=== PATIENT | female | born 1940 | race Caucasian/White ===

== ENCOUNTER 2017-02-12 19:49 | Inpatient (IN) | payer OTHER, MEDICARE ==
[~2017-02-12] VITALS: Ht 165.1 cm; Wt 79.4 kg
[~2017-02-12 19:49] MED LIST: APAP500 MG PO; ATORVASTATIN CA40 M1 PO; COUMADIN5 MG PO; EDARBYCLOR1 TA1 PO; HYDRALAZINE HYD50 MG PO; IMDUR30 MG PO; K-TAB10 MEQ PO; LASIX20 MG PO; LASIX40 MG PO; METFORMIN HCL500 MG PO; METHYLDOPA250 MG PO; PANTOPRAZOLE SO40 M1 PO; TENORMIN50 MG PO; VESICARE5 M1 PO; [UNRECOGNIZED DRUG - OTHER] PO
[2017-02-12 20:37] LABS: BASOPHIL % 0.7 % (0-2); PLATELET COUNT 238 x10^3mcL (130-400)
[2017-02-12 20:38] LABS: RED CELL DISTRIBUTION WIDTH 14.7 % (11.5-14.5)
[2017-02-12 20:47] LABS: CALCIUM 8.5 mg/dL (8.5-10.1); CARBON DIOXIDE 27.5 mmol/L (21-32); CHLORIDE SERUM 104 mmol/L (98-107); CREATININE SERUM 1.1 mg/dL (0.6-1.0); GLUCOSE SERUM 156 mg/dL (74-106); POTASSIUM SERUM 3.2 mmol/L (3.5-5.1); SODIUM SERUM 141 mmol/L (136-145)
[2017-02-12 20:51] LABS: ALBUMIN 3.6 g/dL (3.4-5.0); ALKALINE PHOSPHATASE 45 U/L (46-116); ALT/SGPT 20 U/L (14-59); AST/SGOT 14 U/L (15-37); BILIRUBIN TOTAL 0.6 mg/dL (0.20-1.00); TOTAL PROTEIN, SERUM 7.3 g/dL (6.4-8.2)
[2017-02-12 20:55] LABS: CHOLESTEROL 107 mg/dL (<200)
[2017-02-12] MEDS ORDERED: GOOD SENSE OMEP20 MG PO (21:33)
[2017-02-12] MEDS ORDERED: ALLOPURINOL100 MG PO ×2 (21:34→21:37)
[2017-02-12] MEDS ORDERED: LISINOPRIL2.5 MG PO (21:34)
[2017-02-12] MEDS ORDERED: CARVEDILOL3.125 M1 PO (21:34)
[2017-02-12] MEDS ORDERED: GLUCOPHAGE XR500 MG PO (21:34)
[2017-02-12] MEDS ORDERED: ZESTRIL20 MG PO (21:36)
[2017-02-12] MEDS ORDERED: TORSEMIDE20 MG PO (21:36)
[2017-02-12] MEDS ORDERED: [UNRECOGNIZED DRUG - OTHER] PO (21:36)
[2017-02-12] MEDS ORDERED: VITAMIN D32000 I2 PO (21:37)
[2017-02-12] MEDS ORDERED: METFORMIN HCL1000 MG PO (21:37)
[2017-02-12] MEDS ORDERED: OMEPRAZOLE40 M1 PO (21:37)
[2017-02-12] MEDS ORDERED: ATORVASTATIN CA40 M1 PO (21:38)
[2017-02-12] MEDS ORDERED: CARVEDILOL25 M1 PO (21:38)
[2017-02-12 23:07] LABS: microscopic required? NO
[2017-02-12 23:17] LABS: urine erythrocyte NEGATIVE (NEGATIVE)
[2017-02-12 23:18] LABS: CHOLESTEROL/HDL RATIO 2.6
[2017-02-12 23:23] LABS: T3 TOTAL 1.05 ng/mL
[2017-02-12 23:24] LABS: FREE T4 1.17 ng/dL (0.76-1.46); FREE THYROXINE INDEX 3.6 ug/dL (1.4-4.5); T4(THYROXINE) 10.4 ug/dL (4.7-13.3)
[2017-02-12 23:50] VITALS: BP 154/73
[2017-02-12 23:55] VITALS: Ht 165.1 cm; Wt 79.4 kg
[2017-02-13] VITALS (7 sets, daily range): BP systolic 141–170; BP diastolic 77–88
[2017-02-13 06:16] LABS: BASOPHIL % 0.2 % (0-2); PLATELET COUNT 205 x10^3mcL (130-400)
[2017-02-13 06:45] LABS: RED CELL DISTRIBUTION WIDTH 15.3 % (11.5-14.5)
[2017-02-13 06:54] LABS: CALCIUM 7.8 mg/dL (8.5-10.1); CHLORIDE SERUM 106 mmol/L (98-107); GLUCOSE SERUM 114 mg/dL (74-106); POTASSIUM SERUM 3.6 mmol/L (3.5-5.1); SODIUM SERUM 143 mmol/L (136-145)
[2017-02-13 07:23] LABS: CARBON DIOXIDE 27.2 mmol/L (21-32); CREATININE SERUM 0.7 mg/dL (0.6-1.0); PHOSPHOROUS 2.3 mg/dL (2.5-4.9)
[2017-02-13 07:27] LABS: MAGNESIUM 0.5 mg/dL (1.8-2.4)
[2017-02-14 05:55] VITALS: BP 129/78
[2017-02-14 06:34] LABS: BASOPHIL % 0.4 % (0-2); PLATELET COUNT 198 x10^3mcL (130-400)
[2017-02-14 06:51] LABS: RED CELL DISTRIBUTION WIDTH 15.4 % (11.5-14.5)
[2017-02-14 08:09] LABS: CALCIUM 8.2 mg/dL (8.5-10.1); CARBON DIOXIDE 27.9 mmol/L (21-32); CHLORIDE SERUM 107 mmol/L (98-107); CREATININE SERUM 0.9 mg/dL (0.6-1.0); GLUCOSE SERUM 109 mg/dL (74-106); MAGNESIUM 2.6 mg/dL (1.8-2.4); PHOSPHOROUS 3.5 mg/dL (2.5-4.9); POTASSIUM SERUM 3.4 mmol/L (3.5-5.1); SODIUM SERUM 142 mmol/L (136-145)
[2017-02-14 10:02] VITALS: BP 135/77
[2017-02-14 12:52] VITALS: BP 136/78
[2017-02-14 14:10] VITALS: BP 136/78
[2017-02-14 17:20] VITALS: BP 143/91
[2017-02-14 20:18] VITALS: BP 143/79
[2017-02-15 05:57] VITALS: BP 162/87
[2017-02-15 08:14] LABS: BASOPHIL % 0.3 % (0-2); PLATELET COUNT 223 x10^3mcL (130-400)
[2017-02-15 08:52] LABS: CALCIUM 8.7 mg/dL (8.5-10.1); CARBON DIOXIDE 28.2 mmol/L (21-32); CHLORIDE SERUM 103 mmol/L (98-107); CREATININE SERUM 0.7 mg/dL (0.6-1.0); GLUCOSE SERUM 106 mg/dL (74-106); MAGNESIUM 1.8 mg/dL (1.8-2.4); PHOSPHOROUS 3.3 mg/dL (2.5-4.9); POTASSIUM SERUM 3.1 mmol/L (3.5-5.1); SODIUM SERUM 145 mmol/L (136-145)
[2017-02-15 12:00] VITALS: BP 163/94
[2017-02-15] MEDS ORDERED: DUL5 PO (12:51)
[2017-02-15 14:41] VITALS: BP 174/102
[2017-02-15] MEDS ORDERED: ANTI-DIARRHEA2 MG PO (16:16)
[2017-02-15 17:01] VITALS: BP 159/87
[2017-02-15 17:25] VITALS: BP 159/87
== END 2017-02-15 19:08 | disposition home health service (06) | DRG 640 ==
LOC: ED 19:49 → DU 22:22
PROVIDERS: Emergency Medicine; Family Medicine; Internal Medicine; ADMIT Family Medicine
PROC: 0DBN8ZZ Excision of Sigmoid Colon, Via Natural or Artificial Opening Endoscopic (ICD-10-PCS; principal; 2017-02-15 13:30)
PROC: 0DBP8ZZ Excision of Rectum, Via Natural or Artificial Opening Endoscopic (ICD-10-PCS; 2017-02-15 13:30)
DX: E86.0 Dehydration (principal); G93.41 Metabolic encephalopathy; N17.0 Acute kidney failure with tubular necrosis; D68.69 Other thrombophilia; I42.2 Other hypertrophic cardiomyopathy; K64.4 Residual hemorrhoidal skin tags; K57.30 Diverticulosis of large intestine without perforation or abscess without bleeding; D12.5 Benign neoplasm of sigmoid colon; D12.8 Benign neoplasm of rectum; E83.42 Hypomagnesemia; E87.6 Hypokalemia; I10 Essential (primary) hypertension; E11.9 Type 2 diabetes mellitus without complications; K21.9 Gastro-esophageal reflux disease without esophagitis; E78.00 Pure hypercholesterolemia, unspecified; Z68.31 Body mass index [BMI] 31.0-31.9, adult; Z79.84 Long term (current) use of oral hypoglycemic drugs
CPT/HCPCS: 36600; 45378; 82962; 83880; 84439; 87046; 87046-59; 97110-GP; 97530-GP; G0480; J0360; J1200; J1610; J2250; J2310; J2543; J3010; J3475; J3490; J7030; J7040; Q0092; Q9966; Q9967

== ENCOUNTER → 2017-04-07 | Day surgery (SDC) | payer OTHER, MEDICARE ==
[~2017-04-07] VITALS: Ht 165.1 cm; Wt 79.8 kg
[~2017-04-07] MED LIST changes: +ALLOPURINOL100 MG PO; +ANTI-DIARRHEA2 MG PO; +CARVEDILOL25 M1 PO; +CARVEDILOL3.125 M1 PO; +DUL5 PO; +GLUCOPHAGE XR500 MG PO; +GOOD SENSE OMEP20 MG PO; +LISINOPRIL2.5 MG PO; +METFORMIN HCL1000 MG PO; +OMEPRAZOLE40 M1 PO; +TORSEMIDE20 MG PO; +VITAMIN D32000 I2 PO; +ZESTRIL20 MG PO; +[UNRECOGNIZED DRUG - OTHER] PO
[2017-04-07 10:02] VITALS: BP 161/94
--- NOTE | 2017-04-07 10:50 | NUR ---
1000 PATIENT ARRIVES TO UNIT AMBULATORY WITH WALKER FOR ASSIST AND ALERT AND ORIENTED X4. PATIENT ACCOMPANIED BY SISTER. PATIENT PROVIDED TEACHING REGARDING PLAN OF CARE AND VERBALIZED UNDERSTANDING. MEDICAL HISTORY VERIFIED. ALLERGIES ADDRESSED. VSS. PATIENT MADE COMFORTABLE. PILAR RN NOTIFIED OF PATIENT'S ARRIVAL. ALL NEEDS MET. WILL CONTINUE TO MONITOR.
--- NOTE | 2017-04-07 10:52 | NUR ---
1020 PATIENT TAKEN TO RADIOLOGY DEPT VIA WHEELCHAIR FOR CT SCAN ORDERED. 1035 PATIENT RECEIVED BACK TO UNIT VIA WHEELCHAIR AND ACCOMPANIED BY PILAR BARRETO AND MIGUEL. PATIENT ALERT AND AWAKE AND ABLE TO MAKE ALL NEEDS KNOWN. PATIENT MADE COMFORTABLE. SISTER AT BEDSIDE. ALL NEEDS MET. WILL CONTINUE TO MONITOR.
--- NOTE | 2017-04-07 11:08 | NUR ---
1104 PATIENT TRANSPORTED VIA GURNEY TO RADIOLOGY DEPT FOR PROCEDURE. PATIENT ACCOMPANIED BY PILAR BARRETO AND PATIENT'S SISTER. PATIENT ALERT AND AWAKE AND ABLE TO MAKE NEEDS KNOWN. NO SOB NOTED. DENIES ANY DISTRESS. WILL CONTINUE TO MONITOR.
[2017-04-07 11:55] VITALS: BP 164/94
--- NOTE | 2017-04-07 12:03 | NUR ---
2186 PATIENT RECEIVED BACK TO UNIT VIA GURNEY AND ACCOMPANIED BY PILAR RN. BEDSIDE ENDORSEMENT RECEIVED. PATIENT ALERT AND AWAKE AND ABLE TO MAKE NEEDS KNOWN. NO SOB NOTED. DENIES ANY PAIN OR DISTRESS. PATIENT WITH BANDAID DRESSINGS TO LEFT NECK AREA. DRESSINGS C/D/I. PATIENT MADE COMFORTABLE. ALL NEEDS MET. WILL CONTINUE TO MONITOR.
[2017-04-07 12:40] VITALS: BP 175/98
[2017-04-07 13:05] VITALS: BP 170/34
--- NOTE | 2017-04-07 13:18 | NUR ---
1305 PATIENT ALERT AND AWAKE AND ABLE TO MAKE ALL NEEDS KNOWN. NO SOB NOTED. RESPIRATIONS EVEN AND UNLABORED. PATIENT WITH SISTER AT BEDSIDE. PATIENT AND SISTER PROVIDED DISCHARGE TEACHING REGARDING PLAN OF CARE, DRESSING CARE, AND FOLLOW UP APPOINTMENT. PATIENT AND SISTER VERBALIZED UNDERSTANDING. PATIENT PROVIDED WRITTEN EXITCARE INSTRUCTION AT THIS TIME. PATIENT TRANSPORTED TO PRIVATE VEHICLE AT THIS TIME VIA WHEELCHAIR FOR DISCHARGE HOME ACCOMPANIED BY RN AND SISTER. ALL NEEDS MET.
== END | disposition home or self-care (01) ==
LOC: DS 09:44 → US 11:00 → DS 11:00
PROC: 0WB63ZX Excision of Neck, Percutaneous Approach, Diagnostic (ICD-10-PCS; principal; 2017-04-07)
DX: E04.1 Nontoxic single thyroid nodule (principal); E11.9 Type 2 diabetes mellitus without complications; I10 Essential (primary) hypertension; M10.9 Gout, unspecified; M19.90 Unspecified osteoarthritis, unspecified site; Z86.73 Personal history of transient ischemic attack (TIA), and cerebral infarction without residual deficits; B18.2 Chronic viral hepatitis C; Z68.29 Body mass index [BMI] 29.0-29.9, adult
CPT/HCPCS: J2001

== ENCOUNTER → 2017-05-03 | Outpatient (CLI) | payer OTHER, MEDICARE | END | disposition home or self-care (01) | LOC: US 09:00 | PROC: BW40ZZZ Ultrasonography of Abdomen (ICD-10-PCS; principal; 2017-05-03) | DX: K80.80 Other cholelithiasis without obstruction (principal); R10.9 Unspecified abdominal pain ==

== ENCOUNTER 2017-06-01 06:44 | Day surgery (SDC) | payer OTHER, MEDICARE ==
[~2017-06-01] VITALS: Ht 165.1 cm; Wt 79.8 kg
[2017-06-01 07:34] VITALS: BP 178/98
[2017-06-01 10:47] VITALS: BP 154/91
== END 2017-06-01 12:15 | disposition home or self-care (01) ==
LOC: GI 06:44 → OR 07:30 → GI 07:30
PROVIDERS: Internal Medicine
PROC: 0DB68ZX Excision of Stomach, Via Natural or Artificial Opening Endoscopic, Diagnostic (ICD-10-PCS; principal; 2017-06-01 07:30)
DX: K29.50 Unspecified chronic gastritis without bleeding (principal); K31.7 Polyp of stomach and duodenum; K20.8 Other esophagitis; E11.9 Type 2 diabetes mellitus without complications; K21.9 Gastro-esophageal reflux disease without esophagitis; E78.5 Hyperlipidemia, unspecified; I10 Essential (primary) hypertension; M10.9 Gout, unspecified; Z68.32 Body mass index [BMI] 32.0-32.9, adult
CPT/HCPCS: 43235; J1200; J1610; J2250; J2310; J3010; J3490

== ENCOUNTER 2017-08-09 09:42 | Inpatient (IN) | payer OTHER, MEDICARE ==
[~2017-08-09] VITALS: Ht 165.1 cm; Wt 82.1 kg
--- NOTE | 2017-08-09 10:00 | NUR ---
PT BIB [facility] WITH C/O GENERALIZED WEAKNESS. PT AND EMS REPORT FALL YESTERDAY WITH RUSTY KNEE PAIN, R HIP PAIN, AND LOWER BACK PAIN. FAILIY REPORTS PT SLIFE OUT OF BED AND FAMILY WAS UNABLE PT ARMATURE WINDER PT AND CALLED 911. PT IS AAOX4, RESP EVEN AND UNLABORED, RA. PT IS HYPERTENSIVE, NO C/O CHEST PAIN, SOB, ABD PAIN. EMS BS IS 84. NAD NOTED. PT PLACED ON CARIDAC MONITOR AND PULSE OF. EKG COMPLETED
--- NOTE | 2017-08-09 10:54 | NUR ---
X-RAY CAME TO GET PT BUT PT STATES HAS WET DIAPER. HIGHLY SATURATED DIAPER W/ HIGHLY SATURATED INSERT REMOVED, PT CLEANSED & FRESH DIAPER APPLIED. LARGE RED BRUISE NOTED TO RT HIP.
[2017-08-09 11:02] LABS: BASOPHIL % 0.4 % (0-2); PLATELET COUNT 188 x10^3mcL (130-400)
[2017-08-09 11:05] LABS: RED CELL DISTRIBUTION WIDTH 16.2 % (11.5-14.5)
[2017-08-09 11:15] LABS: CALCIUM 9.1 mg/dL (8.5-10.1); CARBON DIOXIDE 32.5 mmol/L (21-32); CHLORIDE SERUM 106 mmol/L (98-107); CREATININE SERUM 0.8 mg/dL (0.6-1.0); GLUCOSE SERUM 100 mg/dL (74-106); POTASSIUM SERUM 3.7 mmol/L (3.5-5.1); SODIUM SERUM 144 mmol/L (136-145)
[2017-08-09 11:20] LABS: ALBUMIN 3.6 g/dL (3.4-5.0); ALKALINE PHOSPHATASE 50 U/L (46-116); ALT/SGPT 24 U/L (14-59); AST/SGOT 19 U/L (15-37); BILIRUBIN TOTAL 0.6 mg/dL (0.20-1.00); CHOLESTEROL 135 mg/dL (<200); TOTAL PROTEIN, SERUM 6.8 g/dL (6.4-8.2)
--- NOTE | 2017-08-09 12:31 | NUR ---
PT RESTING IN BED. PT REMAINS HYPERTENSIVE. NAD NOTED. FAMILY AT BEDSIDE
[2017-08-09] MEDS ORDERED: LEXAPRO5 M1 PO (12:49)
[2017-08-09] MEDS ORDERED: OMEPRAZOLE40 M1 PO (12:50)
[2017-08-09] MEDS ORDERED: POTASSIUM CHLO10 MEQ PO (12:52)
--- NOTE | 2017-08-09 13:08 | NUR ---
RECEIVED REPORT FROM JOSE BARRETO IN ED, WILL AWAIT PT'S ARRIVAL.
--- NOTE | 2017-08-09 13:11 | NUR ---
REPORT GIVEN TO RISHABH BARRETO IN [facility] FOR CONTINUITY OF CARE
--- NOTE | 2017-08-09 13:20 | NUR ---
RALF RANDOLPH BY VIOLETTA BARRETO, URINE SAMPLE COLLECTED AND SENT TO LAB. PT ALSO CLEANED AND NEW DIAPER PLACED.
[2017-08-09 13:32] LABS: MAGNESIUM 1.7 mg/dL (1.8-2.4); PHOSPHOROUS 3.8 mg/dL (2.5-4.9)
[2017-08-09 13:37] LABS: T3 TOTAL 1.15 ng/mL
[2017-08-09 13:38] LABS: CHOLESTEROL/HDL RATIO 2.8
[2017-08-09 13:41] LABS: FREE T4 1.04 ng/dL (0.76-1.46); T4(THYROXINE) 9.3 ug/dL (4.7-13.3)
[2017-08-09 14:00] LABS: microscopic required? NO
[2017-08-09 14:04] LABS: urine erythrocyte NEGATIVE (NEGATIVE)
[2017-08-09 14:21] VITALS: BP 191/96
--- NOTE | 2017-08-09 14:24 | NUR ---
RECEIVED PT FROM ED VIA JULIANN. ORIENTED PT TO ROOM AND SURROUNDINGS. IV NOTED TO ANNALISE BURCIAGA AND INTACT. TELE 48 PLACED ON PT READING NSR. INSTRUCTED PT ON THE USE OF CALL LIGHT FOR ASSISTANCE. ENDORSED PT TO PRIMARY NURSE RISHABH
[2017-08-09 14:34] LABS: AMPHETAMINE QUAL UR NONE DETECTED (NEG <=1000)
--- NOTE | 2017-08-09 15:14 | NUR ---
PT DENIES SOB, DENIES PAIN, BP MEDS GIVEN FOR ELEVATED BP, FAMILY AT BEDSIDE, CALL LIGHT WITHIN REACH, WILL CONTINUE TO MONITOR.
--- NOTE | 2017-08-09 16:20 | NUR ---
PT DENIES SOB, DENIES PAIN, FAMILY AT BEDSIDE, BS 69, JUICE AND SUGAR GIVEN, CALL LIGHT WITHIN REACH, WILL CONTINUE TO MONITOR.
[2017-08-09 17:14] VITALS: BP 161/86
--- NOTE | 2017-08-09 17:19 | NUR ---
PT DENIES SOB, DENIES PAIN, FAMILY AT BEDSIDE, CALL LIGHT WITHIN REACH, WILL CONTINUE TO MONITOR.
--- NOTE | 2017-08-09 18:14 | NUR ---
PT DENIES SOB, DENIES PAIN, EATING DINNER, FAMILY AT BEDSIDE, CALL LIGHT WITHIN REACH, WILL ENDORSE PT TO NEXT SHIFT.
--- NOTE | 2017-08-09 19:15 | NUR ---
SEEN AAOX4, IVORIAN SPEAKING INTERPRETED BY PATIENT'S SISTER. BREATHING EASY AND EVEN ON ROOM AIR. STS PAIN TO RIGHT HIP IS TOLERABLE STS ONLY GET WORSE ON MOVEMENT. GEN BODY WEAKNESS, STS USING WALKER AT HOME, ON AIR MATTRESS. KEPT HOB ELEVATED AT 30DEG. INCONTINENCE URINE AT TIMES. BRUISES TO RIGHT HIP AND INNER THIGH NOTED. IVF NS AT 80ML/HR INFUSING WELL TO LAC IV SITE. PLAN OF CARE DISCUSSED, CALL LIGHT PLACED WITHIN EASY REACH, SIDERAILS UP X2. SCD TO BLE INPLACED.
--- NOTE | 2017-08-09 21:30 | NUR ---
DUE BEDTIME MEDS GIVEN. TOLERATED WELL. STS PAIN IS OK AT THIS TIME. SISTER STAYS TONIGHT. WILL CONTINUE TO MONITOR.
[2017-08-09 21:53] VITALS: BP 129/68
[2017-08-10] VITALS (7 sets, daily range): BP systolic 136–172; BP diastolic 68–93
--- NOTE | 2017-08-10 00:30 | NUR ---
ASLEEP, NO ANY DISTRESS NOTED. SISTER AT BEDSIDE. IVF NS INFUSING WELL.
--- NOTE | 2017-08-10 06:10 | NUR ---
PARTIAL BEDBATH DONE, NEW CHUX CHANGED, STS PAIN TO RIGHT HIP IS TOLERABLE, IVF NS AT 80ML/HR INFUSING WELL. SCD TO BLE INPLACED.
--- NOTE | 2017-08-10 07:49 | NUR ---
PATIENT AWAKE, ALERT, SISTER AT BEDSIDE, NO SIGNS OF DISTRESS NOTED. ORIENTED TO PERSON AND PLACE, DENIES CHEST PAIN, TELE# 48, HR 66. SCD'S IN PLACE, ON ROOM AIR, LOW AIR MATTRESS IN PLACE, NS INFUSING TO LAC AT 80 ML/HR, NO REDNESS NOR INFILTRATION NOTED TO SITE. CALM AND COOPERATIVE WITH CARE, ALL SAFETY MEASURES IN PLACE, WILL CONTINUE TO MONITOR.
--- NOTE | 2017-08-10 08:46 | NUR ---
ROUNDS MADE AT THIS TIME WITH MD TEAM, CHARGE NURSE SUSHMA, AND DR GILLESPIE. PATIENT AWAKE, ALERT, SITTING UP IN BED, SISTER AT BEDSIDE. PATIENT TO WORK WITH PHYSICAL THERAPY TODAY, DR WOODRUFF TO EVALUATE PATIENT, ALL QUESTIONS AND CONCERNS ADDRESSED, WILL CONTINUE TO MONITOR.
--- NOTE | 2017-08-10 08:51 | NUR ---
ROUNDS MADE AT THIS TIME WITH MD TEAM, CHARGE NURSE SUSHMA, AND DR GILLESPIE. PATIENT AWAKE, ALERT, US TECH AT BEDSIDE. ALL QUESTIONS AND CONCERNS ADDRESSED, WILL CONTINUE TO MONITOR.
--- NOTE | 2017-08-10 09:17 | NUR ---
PHYSICAL THERAPY IN TO EVALUATE PATIENT AT THIS TIME. PATIENT AMBULATED TO RESTROOM WITH WALKER, PT AT BEDSIDE, WILL CONTINUE TO MONITOR.
--- NOTE | 2017-08-10 12:13 | NUR ---
PATIENT AWAKE, ALERT, FAMILY AT BEDSIDE, NO SIGNS OF DISTRESS NOTED. ALL NEEDS ATTENDED TO, ALL SAFETY MEASURES IN PLACE, WILL CONTINUE TO MONITOR.
--- NOTE | 2017-08-10 15:30 | NUR ---
PATIENT AWAKE, FAMILY AT BEDSIDE NO SIGNS OF DISTRESS NOTED. ALL NEEDS ATTENDED TO, ALL SAFETY MEASURES IN PLACE, WILL CONTINUE TO MONITOR.
--- NOTE | 2017-08-10 17:38 | NUR ---
DR ALBARADO MADE AWARE OF BP 172/93, HR 67. PER MD GIVEN 2100 COREG (SEE EMAR), WILL MEDICATE FOR PAIN PRN (SEE EMAR). WILL CONTINUE TO MONITOR.
--- NOTE | 2017-08-10 19:10 | NUR ---
BEDSIDE REPORT GIVEN TO NOC SHIFT NURSE AT THIS TIME, WILL ENDORSE CARE.
--- NOTE | 2017-08-10 19:31 | NUR ---
RECEIVED PATIENT IN BED AWAKE, ORIENTED TP PERSON AND PLACE ONLY WITH NO SIGN OF ACUTE DISTRESS NOTED. DENIES PAIN AND DISCOMFORT AT THIS TIME. TELE#48 NSR ON MONITOR. TRACED EDEMA TO BLE NOTED SCD TO BLE IN PLACE. RESPIRATION EVEN AND NONLABOR WITH CLEAR BS SATTING AT 98% RA, PT ON LOW AIR MATTRESS CALL LIGHT WITHIN REACH. WILL CONTINUE TO MONITOR.
--- NOTE | 2017-08-11 00:12 | NUR ---
STILL AWAKE INSERTED NEW IV TO LEFT HAND INTACT AND INFUSING WELL. SISTER AT BEDSIDE.
--- NOTE | 2017-08-11 05:12 | NUR ---
SLEPT FAIRLY, CHECKED AT INTERVALS FOR NEEDS AND SAFETY. ALL NEEDS ATTENDED.
--- NOTE | 2017-08-11 05:18 | NUR ---
BLOOD PRESSURE CHECKED-182/88 DR CARO MADE AWARE NO NEW ORDERS AT THIS TIME.
[2017-08-11 05:39] VITALS: BP 182/88
--- NOTE | 2017-08-11 05:58 | NUR ---
BP-182.68 VASOTEC 0.625MG GIVEN IVP PRESCRIBED. WILL CONTINUE TO MONITOR.
[2017-08-11 07:10] VITALS: BP 164/80
[2017-08-11 07:18] LABS: BASOPHIL % 0.4 % (0-2); PLATELET COUNT 167 x10^3mcL (130-400)
[2017-08-11 07:28] LABS: CALCIUM 8.8 mg/dL (8.5-10.1); CARBON DIOXIDE 29.3 mmol/L (21-32); CHLORIDE SERUM 107 mmol/L (98-107); CREATININE SERUM 0.7 mg/dL (0.6-1.0); GLUCOSE SERUM 96 mg/dL (74-106); MAGNESIUM 1.6 mg/dL (1.8-2.4); PHOSPHOROUS 3.9 mg/dL (2.5-4.9); POTASSIUM SERUM 4.2 mmol/L (3.5-5.1); SODIUM SERUM 143 mmol/L (136-145)
[2017-08-11 10:33] VITALS: BP 177/99
--- NOTE | 2017-08-11 12:10 | NUR ---
RECEIVED PT IN BED, A/A/O X 2 (PERSON, PLACE), CALM, COOPERATIVE, SISTER BY BEDSIDE. ON TELE # 48, NSR, HR 89. RUSTY RADIAL AND PEDAL PULSES PRESENT, +2 EDEMA TO BLE, CAP REFILL < 3 SECS, SCD IN PLACE. INCONTINENT OF URINE AT TIMES, NO DYSURIA. C/O R HIP AND KNEE PAIN ONLY UPON MOVEMENT, 6/10, ACHING. GENERALIZED WEAKNESS, UNABLE TO ASSESS MOBILITY AT THIS TIME. ECCHYMOTIC SKIN ON R HIP AND L INNER THIGH, SKIN INTACT, MANAGER EMPLOYEE RELATIONS. IV SITE TO LAC CDI, SALINE LOCKED, AND LH CDI, RUNNING NS 80 ML/HR. SIDE RAILS UP X 2, BED IN LOW POSITION, CALL LIGHT WITHIN REACH. WILL CONTINUE TO MONITOR.
--- NOTE | 2017-08-11 12:20 | NUR ---
REPORTED TO DR MORALES THAT PT'S BP 177/99 WITH MAP 118, HR 79. ALSO TOLD DR THAT FAMILY IS WONDERING IF THE CT SCAN CAN BE CHANGED FROM R HIP TO R HIP AND R KNEE. DR MORALES STATED THAT HE WILL GIVE SOME ORDERS, BUT THE CT SCAN WILL REMAIN THE SAME.
[2017-08-11 17:30] VITALS: BP 174/55
--- NOTE | 2017-08-11 18:26 | NUR ---
REPORTED TO DR ALBARADO THAT PT'S AVERAGE BP ABOVE 170/70, PT ASYMPTOMATIC HOWEVER. DR STATED SHE WILL PLACE SOME ORDERS TO DECREASE THE BP. PT WATCHING TV, A/A/O X 2, CALM, COOPERATIVE, SISTER BY BEDSIDE. PT NO RESPIRATORY DISTRESS, PAIN, OR DISCOMFORT NOTED. WILL ENDORSE TO NOC SHIFT.
--- NOTE | 2017-08-11 19:28 | NUR ---
RECEIVED PATIENT IN BED AWAKE AND ALERT WITH NO SIGN OF ISTRESS NOTED. BREATHING EASY AND NONLABOR SATTING AT 98% RA. SISTR AT BDSIDE. TELE#48 NSR ON MONITOR. IV TO LH INTACT AND INFUSING WELL. WILL CONTINUE TO MONITOR. CALL LIGHT WITHIN REACH.
[2017-08-11 21:48] VITALS: BP 175/96
[2017-08-11 23:40] VITALS: BP 172/93
--- NOTE | 2017-08-11 23:46 | NUR ---
STILL AWAKE RECHECKED BP-175/96, DR CARO MADE AWARE, ORDERED TO GIVE NORCO 1 TAB PO. WILL CONTINUE TO MONITOR.
[2017-08-12] VITALS (8 sets, daily range): BP systolic 124–179; BP diastolic 55–98
--- NOTE | 2017-08-12 02:06 | NUR ---
SLEEPING THIS TIME BREATHING EASY AND NONLABOR. WILL CONTINUE TO MONITOR.SISTER AT [facility].
--- NOTE | 2017-08-12 05:40 | NUR ---
SLEPT AT LONG INTERVALS C/O LEGPAIN X1 THE ENTIRE SHIFT AND MEDICATED PRESCRIBED. LATEST BP- 171/94, DR CARO MADE AWARE, NO ORDERS MEDE AT THIS TIME.
[2017-08-12 06:15] LABS: BASOPHIL % 0.3 % (0-2); PLATELET COUNT 162 x10^3mcL (130-400)
[2017-08-12 06:20] LABS: CALCIUM 8.7 mg/dL (8.5-10.1); CHLORIDE SERUM 106 mmol/L (98-107); CREATININE SERUM 0.7 mg/dL (0.6-1.0); GLUCOSE SERUM 103 mg/dL (74-106); MAGNESIUM 1.5 mg/dL (1.8-2.4); PHOSPHOROUS 3.3 mg/dL (2.5-4.9); POTASSIUM SERUM 3.7 mmol/L (3.5-5.1); SODIUM SERUM 143 mmol/L (136-145)
[2017-08-12 06:46] LABS: RED CELL DISTRIBUTION WIDTH 16.5 % (11.5-14.5)
--- NOTE | 2017-08-12 07:25 | NUR ---
A+OX2, COMPLAINING OF SANCHEZ AND R HIP AND KNEE PAIN, NORCO GIVEN, NO RESPRIATORY DISTRESS NOTED, TELE 48, PULSES MODERATE AND EQUAL RUSTY, EDEMA 2+ BLE, SCDS ON, LUNG SOUNDS CTA, TOELRATING RA, BOWEL SOUDNS ACTIVE, INCONTINENT AT TIMES, GENERALIZED WEAKNESS, ON AIR MATTRESS, BRUISES TO R HIP AND L INNER THIGH, IV IN LH WITH NS @ 80 ML/HR, SITE WNL, RBC 3.61, HGB 11.3, HCT 34, MG 1.5.
--- NOTE | 2017-08-12 08:32 | NUR ---
PT RESTING IN BED, NO RESPIRATORY DISTRESS NOTED, STATES PAIN HAS DECREASED.
--- NOTE | 2017-08-12 09:31 | NUR ---
PT RESTING IN BED, NO RESPIRATORY DISTRESS NOTED, STATES PAIN IS TOLERABLE AT THIS TIME, SISTER AT BEDSIDE.
--- NOTE | 2017-08-12 11:43 | NUR ---
PT RESTING IN BED, NO RESPIRATORY DISTRESS NOTED, STATES PAIN IS TOLERABLE.
--- NOTE | 2017-08-12 13:36 | NUR ---
PT RESTING IN BED, NO RESPRIATORY DISTRESS NOTED, IN NO APPARANT PAIN, VERY SLEEPY, SON AT BEDSIDE.
--- NOTE | 2017-08-12 14:55 | NUR ---
PT LETHARGIC, A+OX1, REORIENTED, UNABLE TO STAND WITH PHYSICAL THERAPY, STATES SHE IS NOT HUNGRY. SON AT BEDSIDE.
--- NOTE | 2017-08-12 15:11 | NUR ---
PT COMPLAINING OF R HIP PAIN, TYLENOL GIVEN. NO RESPRIATORY DISTRESS NOTED.
--- NOTE | 2017-08-12 16:48 | NUR ---
BP CONTINUES TO BE HIGH AFTER HYDRALAZINE GIVEN, PT SLEEPY, DENIES PAIN, STATES SHE FEELS FINE. FAMILY AT BEDSIDE. DR LOPEZ NOTIFIED OF BP 173/87.
--- NOTE | 2017-08-12 17:35 | NUR ---
PT RESTING IN BED, NO RESPRIATORY DISTRESS NOTED, DENIES PAIN, FAMILY AT BEDSIDE.
--- NOTE | 2017-08-12 18:04 | NUR ---
WHILE EATING, THE PT BEGAN TO VOMIT AND FELT NAUSEA, LINENS AND GOWN CHANGED, PT ALSO VOIDED, ZOFRAN GIVEN. FAMILY AT BEDSIDE.
--- NOTE | 2017-08-12 20:08 | NUR ---
PT RECEIVED FROM PREVIOUS SHIFT. AAOX2 TO PERSON AND PLACE. TELE #48. DENIES CP/PRESSURE AT THIS TIME. PULSES PALPABLE BILAT. EDEMA NOTED TO BLE. +2. LUNG SOUNDS CTA BILAT. DENIES SOB ON RA. BOWEL SOUNDS ACTIVE X4. GEN WEAKNESS. PT CANNOT WALK D/T PAIN. SKIN INTACT. ECCHYMOSIS PRESENT TO RIGHT HIP AND LEFT INNER THIGH. IV TO LEFT HAND PATENT AND INTACT INFUSING WELL. IV TO LAC APPEARS PATENT AND INTACT. BED IN LOWEST POSITION. CALL LIGHT WITHIN REACH. NO PAIN INDICATED AT THIS TIME. PT TOLERATING APPLESAUCE AND JELLO. NO COMPLAINTS OF NAUSEA. WILL CONTINUE TO MONITOR
--- NOTE | 2017-08-12 20:45 | NUR ---
ADMINISTERED NIGHT MEDICATIONS. PT TOLERATED WELL. NO COMPLAINTS OF NAUSEA AT THIS TIME. WILL CONTINUE TO MONITOR. FAMILY AT BEDSIDE.
--- NOTE | 2017-08-12 21:39 | NUR ---
PT RESTING IN BED. FAMILY MEMBER AT BEDSIDE. NO ACUTE DISTRESS AT THIS TIME. RESPIRATIONS EVEN AND UNLABORED. IV TO LAC PATENT AND INTACT. INFUSING WELL NS @80 ML/HR. NO NAUSEA INDICATED AT THIS TIME. BED IN LOWEST POSITION. CALL LIGHT WITHIN REACH. WILL CONTINUE TO MONITOR
[2017-08-13 06:05] VITALS: BP 116/71
--- NOTE | 2017-08-13 06:45 | NUR ---
PT RESTING PEACEFULLY IN BED. NO COMPLAINTS OF PAIN OR NAUSEA AT THIS TIME. TOLERATED MORNING MEDICATIONS WELL. IV TO LAC INFUSING WELL. PATENT AND INTACT. NO ACUTE DISTRESS AT THIS TIME. RESPIRATIONS EVEN AND UNLABORED. FAMILY MEMBER REMAINS AT BEDSIDE. BED IN LOWEST POSITION. CALL LIGHT WITHIN REACH. WILL ENDORSE CARE TO ONCOMING SHIFT
--- NOTE | 2017-08-13 07:26 | NUR ---
HAND OFF REPORT RECEIVED FROM RN. PATIENT IS SITTING UP IN BED. PATIENT IS STATING THAT SHE IS COLD, WARM BLANKET PROVIDED. PATIENT IS ORIENTED X3 PATIENT IS IRANIAN SPEAKING ONLY, SON IS AT BEDSIDE TO TRANSLATE. PATIENT IS TELE 48 NSR. PATIENT HAS PLUS 2 BLE EDEMA, PATIENT IS ON ROOM AIR. PATIENT IS NOT IN DISTRESS RR IS 16, CHEST RISE IS EQUAL AND BREATHING IS UNLABORED. PATIENT IS ON AN AIR MATTRESS, PATIENT HAS IV TO LAC AND LH, LH IS SALINE LOCKED. LAC HAS NS INFUSING AT 80 ML/HR SITE IS WNL. CALL LIGHT IS WITHIN REACH, SIDE RAILS ARE UP AND BED IS LOCKED.
[2017-08-13 07:44] LABS: BASOPHIL % 0.4 % (0-2); PLATELET COUNT 161 x10^3mcL (130-400)
[2017-08-13 07:45] LABS: RED CELL DISTRIBUTION WIDTH 16.2 % (11.5-14.5)
[2017-08-13 07:52] LABS: CALCIUM 8.6 mg/dL (8.5-10.1); CARBON DIOXIDE 28.6 mmol/L (21-32); CHLORIDE SERUM 102 mmol/L (98-107); CREATININE SERUM 0.8 mg/dL (0.6-1.0); GLUCOSE SERUM 105 mg/dL (74-106); MAGNESIUM 1.9 mg/dL (1.8-2.4); PHOSPHOROUS 4.3 mg/dL (2.5-4.9); POTASSIUM SERUM 3.9 mmol/L (3.5-5.1); SODIUM SERUM 136 mmol/L (136-145)
--- NOTE | 2017-08-13 09:08 | NUR ---
PATIENT SITTING UP IN BED. FAMILY IS AT BEDSIDE. PATIENT STATES SHE HAS TO GO TO THE BATHROOM, EDUCATED ABOUT NOT STRAINING. PATIENT VERBALZIED UNDERSTANDING. PATIENT IS NOT IN DISTRESS. PATIENT RR IS 16 EVEN AND UNLABORED. CALL LIGHT IS WITHIN REACH.
[2017-08-13 09:10] VITALS: BP 132/66
--- NOTE | 2017-08-13 10:36 | NUR ---
DOCTORS MAKING ROUNDS. PATIENT TO BE DISCHARGED AND FOLLOW UP WITH PT AND AWAITING HOME HEALTH APPROVAL.
--- NOTE | 2017-08-13 11:27 | NUR ---
PATIENT HAD INCONTINENT EPISODE WHILE DOING PT. PATIENT ON BEDPAN, WILL FOLLOW UP WHEN PATIENT IS DONE USING THE RESTROOM
--- NOTE | 2017-08-13 12:21 | NUR ---
PATIENT IS SITTING UP IN CHAIR TALKING IN SON. PATIENT IS NOT IN DISTRESS, BREATHING IS EVEN AND UNLABORED RR IS 18. PATIENTS FAMILY INSTRUCTED ABOUT CALL LIGHT USAGE.
--- NOTE | 2017-08-13 13:15 | NUR ---
PATIENT SITTING UP IN CHAIR EATING LUNCH. PATIENT ABLE TO TOLERATE MEDS AND FOOD. PATIENT IS NOT IN DISTRESS, FAMILY IS AT BEDSIDE ASKING ABOUT TIME OF DISCHARGE, WILL FOLLOW UP.
[2017-08-13 13:17] VITALS: BP 114/60
[2017-08-13 13:47] VITALS: BP 114/60
[2017-08-13] MEDS ORDERED: APR25 PO (13:49)
[2017-08-13] MEDS ORDERED: ISOSORBIDE MONO30 MG PO (13:49)
[2017-08-13] MEDS ORDERED: NOR10 PO (13:50)
[2017-08-13] MEDS ORDERED: MECLIZINE HCL12.5 MG PO (13:51)
--- NOTE | 2017-08-13 15:35 | NUR ---
PATIENT AND PATIENTS FAMILY GIVEN DISCHARGE INSTRUCTIONS. PATIENT AND PATIENTS FAMILY VERBALIZED UNDERSTANDING. IV CATHETERS REMOVED, CATHETERS INTACT, SITE COVERED WITH GAUZE AND TAPE. PATIENTS IV FLUIDS REMOVED AND DISCARDED. PATIENTS FAMILY VERIFIED THAT ALL BELONGINGS HAVE BEEN COLLECTED AND STATED THAT HE MAKES ALL HIS MOTHERS MEDICAL DECISIONS AND WOULD SIGN THE DISCHARGE PAPERWORK FOR HER. PATIENT IS NOT IN DISTRESS PATIENT IS ON ROOM AIR RR IS 18, BREATHING IS EVEN AND UNLABORED. PATIENT AND FAMILY INSTRUCTED TO USE CALL LIGHT WHEN READY TO LEAVE.
--- NOTE | 2017-08-13 16:10 | NUR ---
PHYSICAL THERAPY DAILY NOTES CO-SIGN All documentation done by the Pellet Machine Operator for 08/13/17 has been reviewed. I agree with the documentation. Reviewed/Co-Signed by: Marito Nguyen PT Documentation Done by:MEENA REYES DIRECTOR CORPORATE COMMUNICATIONS POC REVIEWED W/ DIRECTOR CORPORATE COMMUNICATIONS; WILL BENEFIT W/ P.T. AFTER ACUTE STAY; SON PRESENT FOR FAMILY TRNG; GIVEN HAND OUTS ON FALL PREVENTION; SON VERY APPRECIA- TIVE; REPORTS THAT FAMILY PREFERS Pt TO GO HOME RATHER THAN SNF DUE TO Pt's IN SNF. 1428-2310 Pt REQ MOD ASSIST W/ FWW IN TOILETTING; NURSE STAFF PERFORMED PERINEAL CARE; EDUC ON HAND PLACEMENT FOR SAFE TRANSFERS; ASSISTED TO BED SAFELY; ALL LINES INTACT, SON IN ROOM, BED ALARM ON. [id number]
== END 2017-08-13 16:10 | disposition home health service (06) | DRG 73 ==
LOC: ED 09:42 → DU 12:37 → MU 12:37 → DU 13:44 → MU 08-10 15:00
PROVIDERS: Emergency Medicine; Family Medicine Sports Medicine; ADMIT Family Medicine
DX: G90.9 Disorder of the autonomic nervous system, unspecified (principal); N17.0 Acute kidney failure with tubular necrosis; D68.69 Other thrombophilia; I16.0 Hypertensive urgency; E11.65 Type 2 diabetes mellitus with hyperglycemia; E11.42 Type 2 diabetes mellitus with diabetic polyneuropathy; K21.9 Gastro-esophageal reflux disease without esophagitis; E83.42 Hypomagnesemia; I11.9 Hypertensive heart disease without heart failure; S20.211A Contusion of right front wall of thorax, initial encounter; M25.551 Pain in right hip; M10.9 Gout, unspecified; E78.5 Hyperlipidemia, unspecified; D63.8 Anemia in other chronic diseases classified elsewhere; F32.9 Major depressive disorder, single episode, unspecified; M17.11 Unilateral primary osteoarthritis, right knee; R29.6 Repeated falls; Z68.30 Body mass index [BMI] 30.0-30.9, adult; Z79.84 Long term (current) use of oral hypoglycemic drugs; W18.39XA Other fall on same level, initial encounter; Y93.89 Activity, other specified; Y92.013 Bedroom of single-family (private) house as the place of occurrence of the external cause
CPT/HCPCS: 82962; 83880; 84439; 97110-GP; 97116-GP; 97530-GP; G0480; J0360; J2270; J2405; J3475; J3490; J7030; Q0092

== ENCOUNTER → 2017-09-12 | Outpatient (CLI) | payer OTHER, MEDICARE ==
[~2017-09-12] MED LIST changes: +APR25 PO; +ISOSORBIDE MONO30 MG PO; +LEXAPRO5 M1 PO; +MECLIZINE HCL12.5 MG PO; +NOR10 PO; +POTASSIUM CHLO10 MEQ PO
== END | disposition home or self-care (01) ==
LOC: RD 12:14
DX: S42.91XA Fracture of right shoulder girdle, part unspecified, initial encounter for closed fracture (principal); X58.XXXA Exposure to other specified factors, initial encounter; Y92.9 Unspecified place or not applicable

== ENCOUNTER → 2018-12-11 | Outpatient (CLI) | payer OTHER, MEDICARE | END | disposition home or self-care (01) | LOC: US 10:25 | PROC: BG44ZZZ Ultrasonography of Thyroid Gland (ICD-10-PCS; principal; 2018-12-11) | DX: E04.1 Nontoxic single thyroid nodule (principal) ==

== ENCOUNTER → 2018-12-18 | Outpatient (CLI) | payer OTHER, MEDICARE | END | disposition home or self-care (01) | LOC: CT 09:00 | PROC: BW2FZZZ Computerized Tomography (CT Scan) of Neck (ICD-10-PCS; principal; 2018-12-18) | DX: E04.1 Nontoxic single thyroid nodule (principal) ==

== ENCOUNTER 2019-02-10 15:38 | Inpatient (IN) | payer OTHER, MEDICARE ==
[~2019-02-10] VITALS: Ht 152.4 cm; Wt 90.7 kg
[2019-02-10 15:47] VITALS: Ht 152.4 cm; Wt 90.7 kg
[2019-02-10 16:59] LABS: BASOPHIL % 0.2 % (0-2); PLATELET COUNT 212 x10^3mcL (130-400)
[2019-02-10 17:00] LABS: RED CELL DISTRIBUTION WIDTH 17.3 % (11.5-14.5)
[2019-02-10 17:05] LABS: CALCIUM 9.2 mg/dL (8.5-10.1); CARBON DIOXIDE 32.4 mmol/L (21-32); CHLORIDE SERUM 99 mmol/L (98-107); CREATININE SERUM 1.2 mg/dL (0.6-1.0); GLUCOSE SERUM 117 mg/dL (74-106); POTASSIUM SERUM 3.8 mmol/L (3.5-5.1); SODIUM SERUM 138 mmol/L (136-145)
[2019-02-10 17:09] LABS: ALBUMIN 3.8 g/dL (3.4-5.0); ALKALINE PHOSPHATASE 55 U/L (46-116); ALT/SGPT 26 U/L (14-59); AST/SGOT 19 U/L (15-37); BILIRUBIN TOTAL 0.4 mg/dL (0.20-1.00); TOTAL PROTEIN, SERUM 7.2 g/dL (6.4-8.2)
[2019-02-10] MEDS ORDERED: ACETAMINOPHEN A1 TAB PO (18:30)
[2019-02-10] MEDS ORDERED: GLUCOPHAGE XR750 MG PO (18:30)
[2019-02-10] MEDS ORDERED: CATAPRES0.1 MG PO (18:31)
[2019-02-10] MEDS ORDERED: COZAAR100 MG PO (18:31)
[2019-02-10] MEDS ORDERED: MELOXICAM15 M1 PO (18:32)
[2019-02-10] MEDS ORDERED: PANTOPRAZOLE SO40 M1 PO (18:32)
[2019-02-10 19:48] VITALS: BP 150/68
[2019-02-11] VITALS (7 sets, daily range): BP systolic 107–176; BP diastolic 60–80
[2019-02-11 06:13] LABS: BASOPHIL % 0.4 % (0-2); PLATELET COUNT 203 x10^3mcL (130-400)
[2019-02-11 06:29] LABS: RED CELL DISTRIBUTION WIDTH 17.3 % (11.5-14.5)
[2019-02-11 07:05] LABS: MAGNESIUM 1.3 mg/dL (1.8-2.4); PHOSPHOROUS 3.9 mg/dL (2.5-4.9)
[2019-02-12 04:56] VITALS: BP 136/64
[2019-02-12 06:26] LABS: BASOPHIL % 0.3 % (0-2); PLATELET COUNT 204 x10^3mcL (130-400)
[2019-02-12 06:36] LABS: RED CELL DISTRIBUTION WIDTH 17.5 % (11.5-14.5)
[2019-02-12 06:55] LABS: CALCIUM 9.4 mg/dL (8.5-10.1); CARBON DIOXIDE 29.3 mmol/L (21-32); CHLORIDE SERUM 104 mmol/L (98-107); CREATININE SERUM 0.8 mg/dL (0.6-1.0); GLUCOSE SERUM 102 mg/dL (74-106); POTASSIUM SERUM 3.5 mmol/L (3.5-5.1); SODIUM SERUM 142 mmol/L (136-145)
[2019-02-12 09:45] VITALS: BP 121/70
[2019-02-12 14:03] VITALS: BP 120/61
[2019-02-12 14:04] VITALS: BP 120/61
== END 2019-02-12 18:32 | disposition home or self-care (01) | DRG 640 ==
LOC: ED 15:38 → DU 17:39
PROVIDERS: Emergency Medicine; Internal Medicine; ADMIT Internal Medicine
DX: E83.42 Hypomagnesemia (principal); G93.41 Metabolic encephalopathy; G45.9 Transient cerebral ischemic attack, unspecified; I10 Essential (primary) hypertension; E11.9 Type 2 diabetes mellitus without complications; K21.9 Gastro-esophageal reflux disease without esophagitis
CPT/HCPCS: 82962; J1650; J3475; Q0092

== ENCOUNTER → 2019-09-05 | Outpatient (CLI) | payer OTHER, MEDICARE ==
[~2019-09-05] MED LIST changes: +ACETAMINOPHEN A1 TAB PO; +CATAPRES0.1 MG PO; +COZAAR100 MG PO; +GLUCOPHAGE XR750 MG PO; +MELOXICAM15 M1 PO
[2019-09-05 11:21] LABS: CALCIUM 9.1 mg/dL (8.5-10.1); CARBON DIOXIDE 33.9 mmol/L (21-32); CHLORIDE SERUM 106 mmol/L (98-107); GLUCOSE SERUM 111 mg/dL (74-106); POTASSIUM SERUM 3.8 mmol/L (3.5-5.1); SODIUM SERUM 147 mmol/L (136-145)
[2019-09-05 11:24] LABS: BASOPHIL % 0.2 % (0-2); PLATELET COUNT 192 x10^3mcL (130-400)
[2019-09-05 11:25] LABS: RED CELL DISTRIBUTION WIDTH 17.6 % (11.5-14.5)
== END | disposition home or self-care (01) ==
LOC: CA 10:31
PROVIDERS: Internal Medicine
DX: K08.9 Disorder of teeth and supporting structures, unspecified (principal)